=== PATIENT | male | born 1960 | race Caucasian/White ===

== ENCOUNTER 2019-12-01 16:19 | Outpatient (CLI) | payer OTHER, SELFPAY ==
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
== END 2019-12-01 16:20 | disposition home or self-care (01) ==
PROVIDERS: PCP Internal Medicine; Visit Provider Internal Medicine
DX: M25.512 Pain in left shoulder (principal)
CPT/HCPCS: 73030

== ENCOUNTER 2019-12-08 10:46 | Outpatient (CLI) | payer OTHER, SELFPAY ==
--- NOTE | ~2019-12-08 | XR_ITS ---
EXAMINATION: XR chest 2V DATE: 12/08/2019 11:12 INDICATION: Possible foreign body ingestion TECHNIQUE: PA and lateral views of the chest are obtained. COMPARISON: 01/05/2018 FINDINGS: The lungs are free of acute opacities. There is no pleural effusion or pneumothorax. The ca rdiomediastinal silhouette is normal. There is mild thoracic spondylosis. No radiopaque foreign body is identified. IMPRESSION: 1. No acute cardiopulmonary abnormality. No radiopaque foreign body identified. Reviewed, dictated and finalized at location A.
== END 2019-12-08 10:47 | disposition home or self-care (01) ==
PROVIDERS: PCP Internal Medicine
DX: T18.9XXA Foreign body of alimentary tract, part unspecified, initial encounter (principal)
CPT/HCPCS: 71046

== ENCOUNTER 2019-12-17 08:17 | Outpatient (CLI) | payer OTHER, SELFPAY ==
--- NOTE | ~2019-12-17 | MR_ITS ---
EXAMINATION: MR shoulder LT wo con DATE: 12/17/2019 09:15 INDICATION: Left shoulder pain TECHNIQUE: Magnetic resonance imaging (MRI) of the left shoulder was performed without intravenous co ntrast. Sequences included axial PD-weighted FS FSE, coronal oblique PD-weighted FS FSE, coronal obli que T2-weighted FS FSE, sagittal PD-weighted FS FSE, and sagittal T1-weighted SE. COMPARISON: Left shoulder radiographs dated 12/01/2019 FINDINGS: Coracoacromial arch: The acromion undersurface is curved in morphology (type II). The coracoacromial ligament is normal. M oderate acromioclavicular osteoarthritis. Rotator cuff: Moderate supraspinatus and infraspinatus tendinopathy. There is attenuation of the distal supraspinat us tendon with poorly defined small partial-thickness articular sided tear. In addition there is a sm all full-thickness split tear measuring approximately 1 mm in AP with and extending for approximately 1-1.5 cm medial to lateral. Mild subscapularis tendinopathy without discrete tear. The teres minor t endon is normal. Normal rotator cuff muscle bulk and signal. Biceps tendon, glenoid labrum and glenohumeral cartilage: Long head of the biceps tendon is normal. Degenerative tearing of the anteroinferior the inferior gle noid labrum. Mild partial thickness cartilage loss with smooth chondral surface at the cephalad third of the glenoid. Fluid: Physiologic amount of fluid in the glenohumeral joint and biceps tendon sheath. No loose osteochondra l bodies. Small amount of fluid in the subacromial/subdeltoid bursa consistent with likely representi ng fluid from the glenohumeral joint space extending through the full-thickness supraspinatus tendon split tear. Bones: There are a a few small scattered bone islands at the glenoid and base of the coracoid process. Marro w signal is normal with no fracture or pathologic marrow replacing process. IMPRESSION: 1. Moderate supraspinatus and infraspinatus tendinopathy with poorly demarcated partial-thickness art icular sided tear at the distal supraspinatus tendon with superimposed more well-defined small full-t hickness longitudinal split tear. 2. Mild glenohumeral osteoarthritis with degenerative tearing of the anteroinferior and inferior hector oid labrum. 3. Moderate acromioclavicular osteoarthritis. 4. Small amount of fluid in the subacromial bursa which could be due to bursitis or more likely fluid from the glenohumeral joint space extending through the full-thickness supraspinatus tendon tear. Reviewed, dictated and finalized at location A. IMPRESSION: 1. Moderate supraspinatus and infraspinatus tendinopathy with poorly demarcated partial-thickness articular sided tear at the distal supraspinatus tendon with superimposed more well-defined small full-thickness longitudinal split tear. 2. Mild glenohumeral osteoarthritis with degenerative tearing of the anteroinfe rior and inferior glenoid labrum. 3. Moderate acromioclavicular osteoarthritis. 4. Small amount of fluid in the subacromial bursa which could be due to bursiti s or more likely fluid from the glenohumeral joint space extending through the full-thickness supraspinatus tendon tear.
== END 2019-12-17 08:18 | disposition home or self-care (01) ==
LOC: CHSIMG 08:19
PROVIDERS: PCP Internal Medicine; Visit Provider Internal Medicine
DX: M25.512 Pain in left shoulder (principal)
CPT/HCPCS: 73221

== ENCOUNTER 2020-01-05 08:00 | Outpatient (RCR) | payer OTHER, SELFPAY ==
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
--- NOTE | 2019-12-30 13:15 | PCPTNOTE ---
12/30/19-pt cancelled apt, no reason stated.-HM
== END 2020-02-06 09:28 | disposition home or self-care (01) ==
LOC: CHSPT 08:00
PROVIDERS: PCP Internal Medicine; Visit Provider Internal Medicine
DX: M25.512 Pain in left shoulder (principal); M19.012 Primary osteoarthritis, left shoulder; M75.112 Incomplete rotator cuff tear or rupture of left shoulder, not specified as traumatic
CPT/HCPCS: 97014; 97110; 97161; G0283

== ENCOUNTER 2021-01-30 10:14 | Outpatient (CLI) | payer OTHER, SELFPAY ==
--- NOTE | ~2021-01-30 | XR_ITS ---
EXAMINATION: XR chest 2V 01/30/2021 11:12 INDICATION: Dyspnea. Sinus infection. Cough. PROCEDURE: 2 view chest COMPARISON: Comparison to multiple prior studies sequentially, with oldest reviewed study dated 01/10. FINDINGS: The lungs are clear. The cardiomediastinal silhouette is within normal limits. There are no pleural effusions. There is no pneumothorax suspected. IMPRESSION: 1: NO ACUTE CARDIOPULMONARY DISEASE. Reviewed, dictated and finalized at location A.
[2021-01-30 10:46] LABS: Basophils Absolute Auto 0.04 K/mm3 (0.00-0.10); Basophils Percent Auto 0.7 % (0.0-1.0); Eosinophils Absolute Auto 0.42 K/mm3 (0.02-0.50); Eosinophils Percent Auto 7.8 % (1.0-6.0); Hematocrit 41.4 % (40.0-54.0); Hemoglobin 13.4 g/dL (14.0-18.0); Immature Granulocyte Absolute 0.01 K/mm3 (0.00-0.00); Immature Granulocyte Percent A 0.2 % (0.0-0.0); Lymphocytes Absolute Auto 1.88 K/mm3 (1.10-4.50); Lymphocytes Percent Auto 34.8 % (18.0-42.0); Mean Corpuscular HGB Conc 32.4 g/dL (32.0-36.0); Mean Corpuscular Hemoglobin 26.5 pg (27.0-31.0); Mean Corpuscular Volume 81.8 fL (78.0-102.0); Monocytes Absolute Auto 0.53 K/mm3 (0.10-0.90); Monocytes Percent Auto 9.8 % (2.0-11.0); Neutrophils Absolute Auto 2.5 K/mm3 (1.7-7.2); Neutrophils Percent Auto 46.7 % (50.0-70.0); Platelet Count Result 211 K/mm3 (150-420); Red Blood Count 5.06 M/mm3 (4.70-6.10); White Blood Count 5.4 K/mm3 (4.8-10.8)
[2021-01-30 11:09] LABS: Alanine Aminotransferase 31 U/L (16-63); Albumin Level 3.7 g/dL (3.4-5.0); Alkaline Phosphatase 57 U/L (46-116); Anion Gap 8 mmol/L (8-16); Aspartate Amino Transferase 23 U/L (15-37); Bilirubin,Total 0.8 mg/dL (0.00-1.00); Blood Urea Nitrogen 22 mg/dL (7-18); Calcium 8.9 mg/dL (8.5-10.1); Carbon Dioxide 28 mmol/L (21-32); Chloride 103 mmol/L (98-108); Estimated Glomerular Filt Rate 55; Glucose 102 mg/dL (70-99); Osmolality Calculated 291 mOsm/kg (285-295); Potassium 4.1 mmol/L (3.5-5.1); Sodium 139 mmol/L (136-145); Total Protein 6.5 g/dL (6.4-8.2)
[2021-01-30 11:16] LABS: Influenza Control Valid (Valid)
[2021-01-30 11:37] LABS: SARS-CoV-2 RNA PCR Negative (Negative)
== END 2021-01-30 10:15 | disposition home or self-care (01) ==
PROVIDERS: PCP Internal Medicine; Visit Provider Internal Medicine
DX: Z20.822 Contact with and (suspected) exposure to COVID-19 (principal); R06.00 Dyspnea, unspecified; J45.909 Unspecified asthma, uncomplicated
CPT/HCPCS: 71046; 80053; 85025; 87804; C9803; U0003; U0005

== ENCOUNTER 2021-08-07 11:15 | Outpatient (CLI) | payer OTHER, SELFPAY ==
[2021-08-07 12:02] LABS: Influenza A QL RT-PCR Negative (Negative); Influenza B QL RT-PCR Negative (Negative); SARS-CoV-2 RNA PCR Negative (Negative)
== END 2021-08-07 11:16 | disposition home or self-care (01) ==
LOC: CHSLAB 11:16
PROVIDERS: PCP Internal Medicine; Visit Provider Internal Medicine
DX: J06.9 Acute upper respiratory infection, unspecified (principal); Z20.822 Contact with and (suspected) exposure to COVID-19
CPT/HCPCS: 87502; C9803; U0003; U0005

== ENCOUNTER 2022-09-24 13:57 | Outpatient (CLI) | payer OTHER, SELFPAY ==
--- NOTE | ~2022-09-24 | XR_ITS ---
Clinical Indication: Dyspnea PA and lateral views of the chest: Comparison: 01/30/2021 Findings: The lungs are clear, without evidence of focal consolidation or pleural effusion. Cardiome diastinal silhouette is within normal limits. Bones and soft tissues are unremarkable. Impression: Normal chest. Reviewed, dictated and finalized at location . 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
[2022-09-24 14:40] LABS: Basophils Absolute Auto 0.03 K/mm3 (0.00-0.10); Basophils Percent Auto 0.5 % (0.0-1.0); Eosinophils Absolute Auto 0.23 K/mm3 (0.02-0.50); Eosinophils Percent Auto 3.9 % (1.0-6.0); Hemoglobin 14.6 g/dL (14.0-18.0); Immature Granulocyte Absolute 0.01 K/mm3 (0.00-0.00); Immature Granulocyte Percent A 0.2 % (0.0-0.0); Lymphocytes Absolute Auto 1.69 K/mm3 (1.10-4.50); Mean Corpuscular HGB Conc 32.4 g/dL (32.0-36.0); Mean Corpuscular Hemoglobin 28.5 pg (27.0-31.0); Mean Corpuscular Volume 87.9 fL (78.0-102.0); Mean Platelet Volume 10.4 fl (8.7-11.0); Monocytes Absolute Auto 0.63 K/mm3 (0.10-0.90); Monocytes Percent Auto 10.8 % (2.0-11.0); Neutrophils Absolute Auto 3.2 K/mm3 (1.7-7.2); Neutrophils Percent Auto 55.6 % (50.0-70.0); Platelet Count Result 228 K/mm3 (150-420); Red Blood Count 5.12 M/mm3 (4.70-6.10); Red Cell Distribution Width 14.6 % (11.6-14.4); White Blood Count 5.8 K/mm3 (4.8-10.8)
[2022-09-24 15:12] LABS: Alanine Aminotransferase 55 U/L (16-63); Albumin Level 3.9 g/dL (3.4-5.0); Alkaline Phosphatase 60 U/L (46-116); Anion Gap 5 mmol/L (8-16); Aspartate Amino Transferase 26 U/L (15-37); Bilirubin,Total 0.5 mg/dL (0.00-1.00); Blood Urea Nitrogen 21 mg/dL (7-18); Calcium 9.2 mg/dL (8.5-10.1); Carbon Dioxide 32 mmol/L (21-32); Chloride 104 mmol/L (98-108); Estimated Glomerular Filt Rate 53; Glucose 80 mg/dL (70-99); NT Pro B Type Natriuretic Pept 30 pg/mL (0-125); Osmolality Calculated 294 mOsm/kg (285-295); Potassium 4.4 mmol/L (3.5-5.1); Sodium 141 mmol/L (136-145); Total Protein 6.7 g/dL (6.4-8.2)
[2022-09-24 15:14] LABS: CRP < 0.5 mg/dL (0.0-0.9)
[2022-09-24 15:44] LABS: Erythrocyte Sedimentation Rate 7 mm/hr (0-20)
== END 2022-09-24 13:58 | disposition home or self-care (01) ==
LOC: CHSLAB 14:01
PROVIDERS: PCP Internal Medicine; Visit Provider Internal Medicine
DX: R06.00 Dyspnea, unspecified (principal); J45.909 Unspecified asthma, uncomplicated
CPT/HCPCS: 36415; 71046; 80053; 83880; 85025; 85652; 86140

== ENCOUNTER 2023-10-06 13:20 | Outpatient (CLI) | payer OTHER, SELFPAY ==
--- NOTE | ~2023-10-06 | XR_ITS ---
EXAMINATION: XR chest 2V DATE: 10/06/2023 13:40 INDICATION: Cough, upper respiratory infection TECHNIQUE: Frontal and lateral views of the chest are obtained COMPARISON: 09/24/2022 FINDINGS: There are minimal airspace opacities of the lingula. No pleural effusion or pneumothorax. T he cardiomediastinal silhouette is normal. There is mild thoracic spondylosis. IMPRESSION: 1. Lingular airspace opacities, consistent with atelectasis versus pneumonia. Reviewed, dictated and finalized at location L. N UP PERSON
[2023-10-06 13:38] LABS: Basophils Absolute Auto 0.04 K/mm3 (0.00-0.10); Basophils Percent Auto 0.6 % (0.0-1.0); Eosinophils Absolute Auto 0.21 K/mm3 (0.02-0.50); Eosinophils Percent Auto 3.3 % (1.0-6.0); Hematocrit 42.7 % (40.0-54.0); Hemoglobin 13.7 g/dL (14.0-18.0); Immature Granulocyte Absolute 0.02 K/mm3 (0.00-0.00); Immature Granulocyte Percent A 0.3 % (0.0-0.0); Lymphocytes Absolute Auto 1.55 K/mm3 (1.10-4.50); Lymphocytes Percent Auto 24.1 % (18.0-42.0); Mean Corpuscular HGB Conc 32.1 g/dL (32.0-36.0); Mean Corpuscular Hemoglobin 26.2 pg (27.0-31.0); Mean Corpuscular Volume 81.8 fL (78.0-102.0); Mean Platelet Volume 10.2 fl (8.7-11.0); Monocytes Absolute Auto 0.57 K/mm3 (0.10-0.90); Monocytes Percent Auto 8.9 % (2.0-11.0); Neutrophils Absolute Auto 4.1 K/mm3 (1.7-7.2); Neutrophils Percent Auto 62.8 % (50.0-70.0); Platelet Count Result 231 K/mm3 (150-420); Red Blood Count 5.22 M/mm3 (4.70-6.10); Red Cell Distribution Width 15.9 % (11.6-14.4); White Blood Count 6.4 K/mm3 (4.8-10.8)
[2023-10-06 13:54] LABS: Alanine Aminotransferase 37 U/L (16-63); Albumin Level 3.8 g/dL (3.4-5.0); Alkaline Phosphatase 63 U/L (46-116); Anion Gap 9 mmol/L (8-16); Aspartate Amino Transferase 24 U/L (15-37); Bilirubin,Total 0.6 mg/dL (0.00-1.00); Blood Urea Nitrogen 20 mg/dL (7-18); Calcium 9.2 mg/dL (8.5-10.1); Carbon Dioxide 28 mmol/L (21-32); Chloride 104 mmol/L (98-108); Estimated Glomerular Filt Rate 52; Glucose 95 mg/dL (70-99); Osmolality Calculated 294 mOsm/kg (285-295); Potassium 4.4 mmol/L (3.5-5.1); Sodium 141 mmol/L (136-145); Total Protein 7.2 g/dL (6.4-8.2)
[2023-10-06 14:03] LABS: Strep Group A RT-PCR NOT DETECTED (Negative)
[2023-10-06 14:13] LABS: SARS-CoV-2 RNA PCR Negative (Negative)
[2023-10-06 14:14] LABS: Influenza A QL RT-PCR Negative (Negative); Influenza B QL RT-PCR Negative (Negative); RSV RNA, RT-PCR Negative (Negative)
== END 2023-10-06 13:21 | disposition home or self-care (01) ==
LOC: CHSLAB 13:23
PROVIDERS: PCP Internal Medicine; Visit Provider Internal Medicine
DX: J06.9 Acute upper respiratory infection, unspecified (principal); R05.9 Cough, unspecified; R91.8 Other nonspecific abnormal finding of lung field
CPT/HCPCS: 36415; 71046; 80053; 85025; 87637; 87651

== ENCOUNTER 2023-10-20 16:04 | Outpatient (CLI) | payer OTHER, SELFPAY ==
--- NOTE | ~2023-10-20 | XR_ITS ---
Clinical Indication: Pneumonia PA and lateral views of the chest: Comparison: 10/06/2023 Findings: The lungs are clear, without evidence of focal consolidation or pleural effusion. Cardiome diastinal silhouette is within normal limits. Bones and soft tissues are unremarkable. Impression: Normal chest. Reviewed, dictated and finalized at [facility]. 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
== END 2023-10-20 16:05 | disposition home or self-care (01) ==
LOC: CHSIMG 16:06
PROVIDERS: PCP Internal Medicine; Visit Provider Internal Medicine
DX: J18.9 Pneumonia, unspecified organism (principal)
CPT/HCPCS: 71046

== ENCOUNTER 2024-03-14 11:38 | Outpatient (CLI) | payer OTHER, SELFPAY ==
--- NOTE | ~2024-03-14 | US_ITS ---
EXAMINATION: US soft tissue LE LT DATE: 03/14/2024 12:13 INDICATION: Left calf swelling and pain. TECHNIQUE: Multiple grayscale and Doppler ultrasound images of the left lower limb were obtained. COMPARISON: None FINDINGS: There is no abnormal mass or hematoma in the left calf in the patient's area of concern. IMPRESSION: 1. No abnormal mass or hematoma in the left calf in the patient's area of concern. Reviewed, dictated and finalized at location A. IMPRESSION: 1. No abnormal mass or hematoma in the left calf in the patient's area of dxeter rn.
--- NOTE | ~2024-03-14 | US_ITS ---
LEFT LOWER EXTREMITY VENOUS ULTRASOUND Ordering provider: Symone Hutton MD History: . LEFT CALF SWELLING/PAIN, R/O DVT . Comparison: None. FINDINGS: --COMMON FEMORAL: Patent and free of thrombus. Normal compressibility, phasic flow and augmentation. --PROXIMAL SUPERFICIAL FEMORAL: Patent and free of thrombus. Normal compressibility, phasic flow and augmentation. --DISTAL SUPERFICIAL FEMORAL: Patent and free of thrombus. Normal compressibility, phasic flow and au gmentation. --POPLITEAL: Patent and free of thrombus. Normal compressibility, phasic flow and augmentation. --POSTERIOR TIBIAL: Patent and free of thrombus. Normal compressibility, phasic flow and augmentation . IMPRESSION: Negative left lower extremity venous US. No deep vein thrombosis. Reviewed, dictated and finalized at location A.
== END 2024-03-14 11:39 | disposition home or self-care (01) ==
LOC: CHSIMG 11:41
PROVIDERS: PCP Internal Medicine; Visit Provider Internal Medicine
DX: M79.89 Other specified soft tissue disorders (principal)
CPT/HCPCS: 76882; 93971

== ENCOUNTER 2024-08-29 13:34 | Outpatient (CLI) | payer OTHER, SELFPAY ==
--- NOTE | ~2024-08-29 | XR_ITS ---
XR chest 2V Ordering provider: Symone Hutton MD History: 63 years Male with . chest pain/dyspnea for 1 week hx asthma . Comparison: October 20, 2023 FINDINGS: MEDIASTINUM: The cardiac silhouette is not enlarged. Slightly prominent wandy. LUNGS: No infiltrates, effusions or pneumothorax. OTHER: No free air under the diaphragm. Degenerative changes of the spine. IMPRESSION: No acute cardiopulmonary pathology. Reviewed, dictated and finalized at location A. 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
[2024-08-29 13:52] LABS: Basophils Absolute Auto 0.04 K/mm3 (0.00-0.10); Basophils Percent Auto 0.7 % (0.0-1.0); Eosinophils Absolute Auto 0.26 K/mm3 (0.02-0.50); Eosinophils Percent Auto 4.2 % (1.0-6.0); Hematocrit 44.7 % (40.0-54.0); Hemoglobin 14.1 g/dL (14.0-18.0); Immature Granulocyte Absolute 0.02 K/mm3 (0.00-0.00); Immature Granulocyte Percent A 0.3 % (0.0-0.0); Lymphocytes Absolute Auto 1.47 K/mm3 (1.10-4.50); Mean Corpuscular HGB Conc 31.5 g/dL (32-36); Mean Corpuscular Hemoglobin 26.4 pg (27.0-31.0); Mean Corpuscular Volume 83.6 fL (78.0-102.0); Mean Platelet Volume 9.7 fl (8.7-11.0); Monocytes Absolute Auto 0.73 K/mm3 (0.10-0.90); Monocytes Percent Auto 11.9 % (2.0-11.0); Neutrophils Percent Auto 58.9 % (50.0-70.0); Platelet Count Result 265 K/mm3 (150-420); Red Blood Count 5.35 M/mm3 (4.70-6.10); Red Cell Distribution Width 15.2 % (11.6-14.4); White Blood Count 6.1 K/mm3 (4.8-10.8)
[2024-08-29 13:56] LABS: Add Urine Microscopic? NO; Appearance Urine Clear (Clear); Bilirubin Urine Negative (Negative); Blood Urine Negative (Negative); Color Urine Light Yellow (Yellow); Glucose Urine UA Negative (Negative); Ketones Urine Negative (Negative); Leukocyte Esterase Ur Negative (Negative); Nitrate Urine Negative (Negative); Protein Urine Negative (Negative); Specific Grav Ur 1.015 (1.010-1.020); Urobilinogen Urine 0.2 mg/dL (0.2-1.0)
[2024-08-29 14:11] LABS: D Dimer 0.29 mg/L (0.19-0.50)
[2024-08-29 14:20] LABS: Alanine Aminotransferase 29 U/L (16-63); Alkaline Phosphatase 66 U/L (46-116); Anion Gap 7 mmol/L (4-12); Aspartate Amino Transferase 17 U/L (15-37); Bilirubin,Total 0.6 mg/dL (0.00-1.00); Blood Urea Nitrogen 19 mg/dL (7-18); Calcium 9.6 mg/dL (8.5-10.1); Carbon Dioxide 31 mmol/L (21-32); Chloride 103 mmol/L (98-108); Creatine Kinase 174 U/L (39-308); Estimated Glomerular Filt Rate 54; Glucose 79 mg/dL (70-99); NT Pro B Type Natriuretic Pept 26 pg/mL (0-125); Osmolality Calculated 293 mOsm/kg (285-295); Potassium 4.6 mmol/L (3.5-5.1); Sodium 141 mmol/L (136-145); Total Protein 7.4 g/dL (6.4-8.2); Troponin I 6.8 ng/L (0.00-60.4)
[2024-08-29 14:21] LABS: CRP < 0.5 mg/dL (0.0-0.9)
[2024-08-29 14:35] LABS: SARS-CoV-2 RNA PCR Negative (Negative)
[2024-08-29 14:36] LABS: Influenza A QL RT-PCR Negative (Negative); Influenza B QL RT-PCR Negative (Negative); RSV RNA, RT-PCR Negative (Negative)
[2024-08-29 14:59] LABS: Erythrocyte Sedimentation Rate 10 mm/hr (0-20)
== END 2024-08-29 13:35 | disposition home or self-care (01) ==
LOC: CHSLAB 13:36
PROVIDERS: PCP Internal Medicine; Visit Provider Internal Medicine
DX: R06.00 Dyspnea, unspecified (principal); R07.9 Chest pain, unspecified
CPT/HCPCS: 36415; 71046; 80053; 81003; 82550; 82553; 83880; 84484; 85025; 85380; 85652; 86140; 87637

== ENCOUNTER 2024-09-27 09:33 | Outpatient (CLI) | payer MEDICARE, SELFPAY ==
--- NOTE | ~2024-09-27 | XR_ITS ---
EXAMINATION: XR chest 2V DATE: 09/27/2024 10:00 INDICATION: Asthma presenting with upper respiratory tract infection TECHNIQUE: PA and lateral views of the chest were obtained. COMPARISON: Chest radiograph dated 08/29/2024 FINDINGS: The lungs remain clear with no focal airspace opacities, pulmonary edema, pleural effusion or pneumot horax. The cardiomediastinal silhouette is normal. Mild thoracic spondylosis with chronic mild anteri or wedging of a midthoracic vertebral body. IMPRESSION: 1. No acute cardiopulmonary disease. Reviewed, dictated and finalized at location A. LE SCHOOL DIRECTOR
[2024-09-27 09:55] LABS: Hematocrit 45.8 % (37.0-46.0); Mean Corpuscular HGB Conc 30.6 g/dL (32-36); Mean Corpuscular Hemoglobin 25.9 pg (27.0-31.0); Mean Corpuscular Volume 84.7 fL (78.0-102.0); Mean Platelet Volume 9.7 fl (8.7-11.0); Platelet Count Result 288 K/mm3 (150-420); Red Blood Count 5.41 M/mm3 (4.70-6.10); Red Cell Distribution Width 15.4 % (11.6-14.4); White Blood Count 5.3 K/mm3 (4.8-10.8)
[2024-09-27 10:18] LABS: Anion Gap 7 mmol/L (4-12); Blood Urea Nitrogen 20 mg/dL (7-18); Calcium 9.1 mg/dL (8.5-10.1); Carbon Dioxide 29 mmol/L (21-32); Chloride 106 mmol/L (98-108); Estimated Glomerular Filt Rate 48; Glucose 100 mg/dL (70-99); Osmolality Calculated 296 mOsm/kg (285-295); Sodium 142 mmol/L (136-145)
--- OUTSIDE RECORDS SUMMARY | 2024-09-27 10:28 | XMS_ITS | Clinical Summary ---
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 Pulse 56 06/25/2015 9:35 AM EXCELLENCE CONSULTANT Temperature - - Respiratory Rate 16 06/25/2015 9:35 AM EXCELLENCE CONSULTANT Oxygen Saturation - - Inhaled Oxygen Concentration - - Weight 92.7 kg (204 lb 6.4 oz) 06/25/2015 9:35 A M EXCELLENCE CONSULTANT Height 181.6 cm (5' 11.5 ) 06/25/2015 9:35 AM CS T Body Mass Index 28.11 06/25/2015 9:35 AM EXCELLENCE CONSULTANT Plan of Treatment Health Maintenance Due Date Last Done Comments Colorectal Cancer Screening Colonoscopy (10 Years) 1959 Annual Physical 1962 Hepatitis C 1977 DTaP, Tdap and Td Vaccines ( 1 - Tdap) 1978 Zoster Vaccines (1 of 2) 2009 COVID-19 Vaccine ( - 2023-2 5 season) 2024 Influenza Adult (#1) 2024 RSV Immunization or 60+ Years (1 - 1-dose 75+ series) 2034 Meningococcal B Vaccine Aged Out No l onger eligible based on patient's age to complete this topic Meningococcal Vaccine Aged Out No jose driss eligible based on patient's age to complete this topic Pneumococcal Vaccine: Pediat rics (0 to 5 Years) and At-Risk Patients (6 to 64 Years) Aged Out No longer eligible b ased on patient's age to complete this topic RSV Immunizations Under 20 Months Aged Out No longer eligible based on patient's age to complete this topic
--- OUTSIDE RECORDS SUMMARY | 2024-09-27 10:28 | XMS_ITS | Patient Health Summary ---
Author Organization [facility] Address [address] [place] [address] Care Team Providers Care House Cleaner Name Role Phone Symone Hutton MD Primary Care Provider [phone] [facility],non-owned Affiliates and Associated Physician Practices is amultiple site organization consisting of ambulatory clinics and hospital sitesin [place], [place], [place] and [place]. This disclosure is being madepursuant to the Care Everywhere program and may not contain all information available regarding this patient. Last updated 18.[facility] Allergies No known active allergies Medications * Be aware that medications may not be up to date on this document. Alwaysverify current medications with the patient. * losartan - hydroCHLOROthiazide (HYZAAR) 50-12.5 MG tablet(Started 08/27/2016) Take 0.5 (one-half) tablet by mouth once daily * budesonide (PULMICORT) 0.5 MG/2ML nebulizer suspension(Started 01/16/2022) Mix contents of 1 vial in 240ml saline. Irrigate half in each nostril twice daily. Pt to mix own saline bottle 3 refills by 01/16/2023 * amLODIPine (Norvasc) 5 MG tablet(Started 12/11/2022) Take 2 (two) tablets by mouth once daily * amLODIPine (Norvasc) 10 MG tablet(Started 04/24/2023) Take 1 (one) tablet by mouth once daily * famotidine (Pepcid) 20 MG tablet(Started 05/19/2024) Take 1 (one) tablet by mouth 2 times daily 3 refills by 05/19/2025 * budesonide-formoterol (Breyna) 160-4.5 MCG/ACT inhaler(Started 05/19/2024) Inhale 2 (two) puffs by mouth 2 times daily 3 refills by 05/19/2025 * montelukast (Singulair) 10 MG tablet(Started 05/19/2024) Take 1 (one) tablet by mouth once daily 3 refills by 05/19/2025 * fluticasone propionate (Flonase) 50 MCG/ACT nasal spray(Started 05/19/2024) [place] 1 (one) spray into each nostril 2 times daily 11 refills by 05/19/2025 * albuterol HFA (Proventil; Ventolin; Proair) 108 (90 Base) MCG/ACT inhaler (Started 05/19/2024) Inhale 2 (two) puffs by mouth every 4 hours as needed for Shortness of Breath, Wheezing or Cough 11 refills by 05/19/2025 * azelastine (Astelin) 0.1 % nasal spray(Started 05/19/2024) [place] 2 (two) sprays into each nostril 2 times daily 3 refills by 05/19/2025 Active Problems Problem Noted Date Diagnosed Date Moderate persistent asthma without complication 02/12/2023 Vocal cord dysfunction 05/02/2018 Essential hypertension 04/28/2018 Severe persistent asthma without complication GERD (gastroesophageal reflux disease) 3 Non-allergic rhinitis 08/27/2012 Resolved Problems Problem Noted Date Diagnosed Date Resolved Date Acute upper respiratory infection 07/23/2017 11/30/2017 Headache 05/31/2015 04/21/2018 Chronic rhinitis 08/27/2012 04/21/2018 Chronic maxillary sinusitis 12/25/2010 04/21/2018 Immunizations * INFLUENZA VACCINE(Given 06/23/2022) * INFLUENZA VACCINE, QUADR. (AFLURIA, FLUZONE QUADRIVALENT; 6MO+) (IIV4)(Given 06/18/2017, 08/06/2016, 06/04/2015) * INFLUENZA VACCINE, QUADR. (FLUZONE; FLULAVAL; FLUARIX; AFLURIA QUADRIVALENT; 6MO+), 0.5 ML (IIV4)(Given 04/30/2020, 05/29/2019, 04/28/2018) * PNEUMOCOCCAL PPV VACCINE(Given 2018, 05/25/2015, 12/25/2010) * Pneumococcal Pcv13 Conj(Given 02/20/2016) * TDAP, HISTORIC VACCINE(Given 06/18/2017, 06/13/2008) * Zoster Hzv Vacc Recombinant Inj Im(Given 06/25/2020, 03/06/2020) Social History Tobacco Use Types Packs/Day Years Used Date Smoking Tobacco: Never Smokeless Tobacco: Never Tobacco Cessation:Counseling Given: Not Answered Alcohol Use Standard Drinks/Week Comments Yes 4 (1 standard drink = 0.6 oz pur e alcohol) PHQ-2 Answer Date Recorded PHQ2 TOTAL SCORE 0 02/12/2023 Sex and Gender Information Value Date Recorded Sex Assigned at Not on file Gender Identity Not on file Sexual Orientation Not on file Last Filed Vital Signs Vital Sign Reading Time Taken Comments Blood Pressure 160/89 05/19/2024 3:47 PM CDT Pulse 74 05/19/2024 3:47 PM CDT Temperature 36.4 C (97.5 F) 05/19/2024 3:47 PM CDT Respiratory Rate 18 05/19/2024 3:47 PM CDT Oxygen Saturation 95% 05/19/2024 3:47 PM CDT Inhaled Oxygen Concentration - - Weight 95.7 kg (211 lb) 05/19/2024 3:47 PM CDT Height 182.9 cm (6') 05/19/2024 3:47 PM CDT Body Mass Index 28.62 05/19/2024 3:47 PM CDT Procedures * PFT-LAB(Performed 07/19/2024) Performed for Severe persistent asthma without complication (HCC) * ME NASAL ENDOSCOPY,DX(Performed 03/06/2022) Performed for Chronic ethmoidal sinusitis * CT SINUS WO CONTRAST(Performed 01/16/2022) Performed for Non-allergic rhinitis * SPIROMETRY - POCT (AMB) [facility](Performed 04/28/2018) Performed for Severe persistent asthma without complication (HCC) * XR CHEST 2VW(Performed 03/19/2017) * PATHOLOGY/GENETICS HISTORICAL-ONBASE(Performed 08/19/2007) Results * Complete PFT [facility] PFT Lab (07/19/2024 10:13 AM CONSTRUCTION TRADES TEACHER) Impressions Virgilio Mojica MD - 07/19/2024 10:13 AM CONSTRUCTION TRADES TEACHER [facility] DEPARTMENT OF PULMONARY, CRITICAL CARE, AND SLEEP MEDICINE PULMONARY FUNCTION TEST Please see technologist's comments mentioned in the report. INTERPRETATION: SPIROMETRY: FVC: normal FEV1: normal FEV1/FVC ratio is normal BRONCHODILATOR RESPONSE: There is no significant response to bronchodilator therapy however does not preclude from bronchodilator therapy if clinically indicated otherwise FLOW-VOLUME LOOPS: Normal flow-volume loops LUNG VOLUMES: Lung volumes by body plethysmography show normal total lung volume and normal residual volume DLCO: Unadjusted for Hb and COHb is: normal (-1.65 to 1.645) IMPRESSION: 1. Normal pulmonary function test. 2. No significant bronchodilator response, however this does not preclude the use of bronchodilators 3. There is no previous study available for comparison. Simon Fagan DO Pulmonary & Critical Care Fellow [facility] Pager: [phone] 7:56 PM I have reviewed the above study and agree with the interpretation as listed above. Virgilio Mojica MD Dumpster Driver of Pulmonary & Critical Care Medicine [facility] Pager [phone] Narrative Virgilio Mojica MD - 07/19/2024 10:13 AM CONSTRUCTION TRADES TEACHER Simon Fagan DO 07/19/2024 7:56 PM Timmy Alejandra MD RESPIRATORY THERAPY ORDERABLES * ME NASAL ENDOSCOPY,DX (03/06/2022 11:35 AM CDT) Narrative Gavi Duggan MD - 03/06/2022 11:35 AM CDT Gavi Duggan MD 03/06/2022 4:17 PM Procedure Note Anesthesia: Lidocaine 2% and Champ-Synephrine 1/2% Endoscopy Type: Rigid Nasal Endoscopy Procedure Details: Informed consent was obtained. The patient was placed in the sitting position. After topical anesthesia and decongestion, the 4 mm endoscope was passed. The nasal cavities, nasopharynx, were all examined. The findings were recorded. The following findings were noted: Right side patent, with some polypoid tissue in middle meatus, mild septal deviation, pink mucosa, patent Eustachian tube, adenoid pad with evidence of prior adenoidectomy. Left side narrower, mild polyposis, open maxillary sinus, mild edema, pink mucosa. The patient tolerated procedure well. Complications: None For all procedures, attending was present and performed the denton portions of the procedure. Jaziel Rodriguez MD PROCEDURE/MINOR SURG ICAL ORDERABLES * CT SINUS WO CONTRAST (01/16/2022 9:08 AM CDT) Anatomical Region Laterality Modality Head Computed Tomogra phy 01/16/2022 10:2 6 AM CDT Impressions 01/16/2022 12:45 PM CDT IMPRESSION: 1.Postsurgical changes of prior sinonasal surgery. 2.Inflammatory changes in multiple paranasal sinuses as above with underlying chronic sinusitis. Dictated by Josh Gore MD (Bridal Sales Consultant) I, Dr. MALENA NOONAN M.D. have personally reviewed and interpreted this examination/study. This report was electronically signed by MALENA NOONAN M.D. on 01/16/2022 12:45 PM . Narrative 01/16/2022 12:45 PM CDT EXAMINATION: Computed tomography (CT) of the paranasal sinuses without contrast HISTORY: J31.0: Non-allergic rhinitis TECHNIQUE: CT of the paranasal sinuses was performed without contrast according to standard protocol. Automated dose reduction techniques were employed. COMPARISON: No prior study is available for comparison at the time of this dictation. FINDINGS: Frontal sinuses: Hypoplastic right frontal sinus with near complete opacification due to frothy secretions. Near complete opacification of right frontal sinus outflow tract. Aerated well-pneumatized left frontal sinus with minimal mucosal thickening in the inferior sinus and outflow tract. Ethmoid sinuses: Status post partial ethmoidectomies bilaterally. Opacification of several anterior and posterior ethmoid air cells bilaterally Sphenoid sinuses: Very small and completely opacified right sphenoid sinus. Dominant left sphenoid sinus with circumferential mild mucosal thickening and complete opacification of the ostium and infundibulum. Possibly prior sphenoidotomy. Aeration of the sphenoid sinus extends to the level of dorsum sella. Maxillary sinuses: . Status post bilateral antrostomies. Moderate polypoid mucosal thickening. Patent ostiomeatal units. Nasal cavity: Bilateral uncinectomies and left sided partial middle turbinectomy. Nearly midline nasal septum. No septal spur. Fovea ethmoidalis at nearly the same level bilaterally. Intact cribriform plate. Tympanomastoid cavities: Well pneumatized and completely aerated Orbits: No significant finding. Brain: No significant finding. Soft tissues: No significant finding. 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 Procedure Note Malena Noonan MD - 01/16/2022 EXAMINATION: Computed tomography (CT) of the paranasal sinuses without contrast HISTORY: J31.0: Non-allergic rhinitis TECHNIQUE: CT of the paranasal sinuses was performed without contrast according to standard protocol. Automated dose reduction techniques were employed. COMPARISON: No prior study is available for comparison at the time ofthis dictation. FINDINGS: Frontal sinuses: Hypoplastic right frontal sinus with near complete opacification due to frothy secretions. Near complete opacification of right frontal sinus outflow tract. Aerated well-pneumatized left frontal sinus with minimal mucosal thickening in the inferior sinus and outflow tract. Ethmoid sinuses: Status post partial ethmoidectomies bilaterally. Opacification of several anterior and posterior ethmoid air cells bilaterally Sphenoid sinuses: Very small and completely opacified right sphenoid sinus. Dominant left sphenoid sinus with circumferential mild mucosal thickening and complete opacification of the ostium and infundibulum. Possibly prior sphenoidotomy. Aeration of the sphenoid sinus extends to the level of dorsum sella. Maxillary sinuses: . Status post bilateral antrostomies. Moderatepolypoid mucosal thickening. Patent ostiomeatal units. Nasal cavity: Bilateral uncinectomies and left sided partial middle turbinectomy. Nearly midline nasal septum. No septal spur. Fovea ethmoidalis at nearly the same level bilaterally. Intact cribriformplate. Tympanomastoid cavities: Well pneumatized and completely aerated Orbits: No significant finding. Brain: No significant finding. Soft tissues: No significant finding. 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 IMPRESSION: 1.Postsurgical changes of prior sinonasal surgery. 2.Inflammatory changes in multiple paranasal sinuses as above with underlying chronic sinusitis. Dictated by Josh Gore MD (Bridal Sales Consultant) Dr. MALENA Polanco M.D. have personally reviewed and interpreted this examination/study. This report was electronically signed by MALENA NOONAN M.D. on 01/16/2022 12:45 PM . Jaziel Rodriguez MD CT ORDERABLES * SPIROMETRY - POCT (AMB) [facility] (04/28/2018) MISCELLANEOUS SAMPLE S / Unknown 04/28/2018 Tristin Hawley DO LAB - POINT OF CARE ORDERABLES * XR CHEST 2VW (03/19/2017 10:43 AM CDT) Anatomical Region Laterality Modality Chest Other Impressions 03/19/2017 4:24 PM CDT Impression: No active pulmonary disease. Report dictated by Cong Comer MD (resident). Dr. CHITO Polanco MD have personally reviewed and interpreted this examination/study. This report was electronically signed by CHITO THORNE MD on 03/19/2017 4:24 PM . Narrative 03/19/2017 4:24 PM CDT Exam: XR CHEST PA AND LATERAL Exam Date: 03/19/2017 10:43 AM History: increased chest tightness, cough, h/o asthma Comparison: No prior study is available for comparison. Findings: There is no consolidation, pleural effusion or pneumothorax. The cardiac and mediastinal silhouettes are normal. Degenerative changes are seen in the midthoracic spine. Procedure Note Chito Thorne MD - 11/13/2017 Exam: XR CHEST PA AND LATERAL Exam Date: 03/19/2017 10:43 AM History: increased chest tightness, cough, h/o asthma Comparison: No prior study is available for comparison. Findings: There is no consolidation, pleural effusion or pneumothorax. The cardiacand mediastinal silhouettes are normal. Degenerative changes are seen inthe midthoracic spine. IMPRESSION Impression: No active pulmonary disease. Report dictated by Cong Comer MD (resident). Dr. CHITO Polanco MD have personally reviewed and interpreted thisexamination/study. This report was electronically signed by CHITO THORNE MD on 03/19/20174:24 PM . Timmy Alejandra MD DIAGNOSTIC IMAGING [facility] * PATHOLOGY/GENETICS HISTORICAL-ONBASE (08/19/2007) 08/19/2007 Historical Provider LAB - CHEMISTRY [facility] Performing Organization Address City/State/[facility] Co de Phone Number [facility] [address] Care Teams House Cleaner Relationship Specialty Start Date End Date Symone Hutton MD PCP - General 06/30/08
--- OUTSIDE RECORDS SUMMARY | 2024-09-27 10:28 | XMS_ITS | Referral Summary ---
Author Organization [facility] Address [address] [place] [address] Care Team Providers Care Leather Goods Assembler Name Role Phone Symone Hutton MD Primary Care Provider [phone] Source Comments [facility],non-owned Affiliates and Associated Physician Practices is amultiple site organization consisting of ambulatory clinics and hospital sitesin [place], [place], [place] and [place]. This disclosure is being madepursuant to the Care Everywhere program and may not contain all information available regarding this patient. Last updated 18.[facility] Encounters Date Type Department Care Team Description 07/19/2024 Travel 07/19/2024 8:00 AM AIRFIELD ENGINEER OFFICER - 07/19/2024 11:[address] [facility] Hospital Encounter [facility] PFT [address] [place] [address] Timmy Alejandra MD Discharge Disposition: Home or Self Care from Last 3 Months Allergies No known active allergies Medications * Be aware that medications may not be up to date on this document. Alwaysverify current medications with the patient. Medication Sig Dispensed Refills Start Date End Date Status losartan - hydroCHLOROthiazide (HYZAAR) 50-12.5 MG tablet Take 0.5 (one-half) tablet by mouth once daily 7 Active budesonide (PULMICORT) 0.5 MG/2ML nebulizer suspension Mix contents of 1 vial in 240ml saline. Irrigate half in each nostril twice daily. Pt to mix own saline bottle 120 mL 3 2 Active Additional Information Patient not taking.Reported on 12/22/2022 amLODIPine (Norvasc) 5 MG tablet Take 2 (two) tablets by mouth once daily 3 Active amLODIPine (Norvasc) 10 MG tablet Take 1 (one) tablet by mouth once daily 3 Active famotidine (Pepcid) 20 MG tabletIndications:Gastro esophageal reflux disease, unspecified whether esophagitis present Take 1 (one) tablet by mouth 2 times daily 180 tablet 3 4 Active budesonide-formoterol (Breyna) 160-4.5 MCG/ACT inhaler Inhale 2 (two) puffs by mouth 2 times daily 30.6 g 3 4 Active montelukast (Singulair) 10 MG tabletIndications:Severe asthma without complication, unspecified whether persistent (HCC) Take 1 (one) tablet by mouth once daily 90 tablet 3 4 Active fluticasone propionate (Flonase) 50 MCG/ACT nasal sprayIndications:Non-all ergic rhinitis [place] 1 (one) spray into each nostril 2 times daily 48 g 11 4 Active albuterol HFA (Proventil; Ventolin; Proair) 108 (90 Base) MCG/ACT inhalerIndications:Sever e persistent asthma without complication (HCC) Inhale 2 (two) puffs by mouth every 4 hours as needed for Shortness of Breath, Wheezing or Cough 8.5 g 11 4 Active azelastine (Astelin) 0.1 % nasal spray [place] 2 (two) sprays into each nostril 2 times daily 90 mL 3 4 Active Active Problems Problem Noted Date Diagnosed Date Moderate persistent asthma without complication 02/12/2023 Vocal cord dysfunction 05/02/2018 Essential hypertension 04/28/2018 Severe persistent asthma without complication GERD (gastroesophageal reflux disease) 3 Overview (11/16/2017): Well-controlled Non-allergic rhinitis 08/27/2012 Resolved Problems Problem Noted Date Diagnosed Date Resolved Date Acute upper respiratory infection 07/23/2017 11/30/2017 Headache 05/31/2015 04/21/2018 Chronic rhinitis 08/27/2012 04/21/2018 Chronic maxillary sinusitis 12/25/2010 04/21/2018 Immunizations Name Administration Dates Next Due INFLUENZA VACCINE 06/23/2022 INFLUENZA VACCINE, QUADR. (A FLURIA, FLUZONE QUADRIVALENT; 6MO+) (IIV4) 06/18/2017,08/06/2016,06/04/2015 INFLUENZA VACCINE, QUADR. (F LUZONE; FLULAVAL; FLUARIX; AFLURIA QUADRIVALENT; 6MO+), 0.5 ML (IIV4) 04/30/2020,05/29/2019,04/28/2018 PNEUMOCOCCAL PPV VACCINE 2018,05/25/2015,0 12/25/2010 Pneumococcal Pcv13 Conj 02/20/2016 TDAP, HISTORIC VACCINE 06/18/2017,06/13/2008 Zoster Hzv Vacc Recombinant Inj Im 06/25/2020, Social History Tobacco Use Types Packs/Day Years [...] Mass Index 28.62 05/19/2024 3:47 PM CDT Plan of Treatment Upcoming Encounters Date Type Department Care Team (Late st Contact Info) Description 11/17/2024 4:00 PM CDT Office Visit [facility] - [facility] [address] [place] [address], [place] [phone] Timmy Alejandra MD [address] [place] [address] DIV OF [place]ERGY/[place] [address] 12/08/2024 9:30 AM CDT Office Visit [facility] - ENT [address], [place] [phone] Jaziel Rodriguez MD [address] [place] [address] Procedures Procedure Name Priority Date/Time Associated Diagnosis Comments PFT-LAB Routine 07/19/2024 10:13 AM AIRFIELD ENGINEER OFFICER Severe persistent asthma without complication (HCC) from Last 3 Months Results * Complete PFT [facility] PFT Lab (07/19/2024 10:13 AM AIRFIELD ENGINEER OFFICER) Impressions Virgilio Mojica MD - 07/19/2024 10:13 AM AIRFIELD ENGINEER OFFICER [facility] DEPARTMENT OF PULMONARY, CRITICAL CARE, AND SLEEP [...] Fagan DO Pulmonary & Critical Care Fellow [facility] Pager: [phone] 7:56 PM I have reviewed the above study and agree with the interpretation as listed above. Virgilio Mojica MD Loan Interviewer of Pulmonary & Critical Care Medicine [facility] Pager [phone] Narrative Virgilio Mojica MD - 07/19/2024 10:13 AM AIRFIELD ENGINEER OFFICER Simon Fagan DO 07/19/2024 7:56 PM Timmy Alejandra MD RESPIRATORY THERAPY ORDERABLES from Last 3 Months Care Teams Leather Goods Assembler Relationship Specialty Start Date End Date Symone Hutton MD PCP - General 06/30/08
--- OUTSIDE RECORDS SUMMARY | 2024-09-27 10:28 | XMS_ITS | Clinical Summary ---
Author Organization [facility] [employer] Address [address] [place] [address] Care Team Providers Care Commercial Airplane Pilot Name Role Phone Symone Hutton MD Primary Care Provider [phone] Source Comments [facility] [employer],non-owned Affiliates and Associated Physician Practices is amultiple site organization consisting of ambulatory clinics and hospital sitesin [place], [place], [place] and [place]. This disclosure is being madepursuant to the Care Everywhere program and may not contain all information available regarding this patient. Last updated 18.[facility] [employer] Allergies No known active allergies Medications * [...] (Flonase) 50 MCG/ACT nasal sprayIndications:Non-all ergic rhinitis [place] 1 (one) spray into each nostril 2 times daily 48 g 11 4 Active albuterol HFA (Proventil; Ventolin; Proair) 108 (90 Base) MCG/ACT inhalerIndications:Sever e persistent asthma without complication (HCC) Inhale 2 (two) puffs by mouth every 4 hours as needed for Shortness of Breath, Wheezing or Cough 8.5 g 11 4 Active azelastine (Astelin) 0.1 % nasal spray [place] 2 (two) sprays into each nostril 2 [...] 08/27/2012 04/21/2018 Chronic maxillary sinusitis 12/25/2010 04/21/2018 Encounters Date Type Department Care Team Description 07/19/2024 8:00 AM GROCERY TEAM MEMBER - 07/19/2024 11:59 PM [facility] Hospital Encounter [facility] PFT [address] [place] [address] Timmy Alejandra MD Discharge Disposition: Home or Self Care 07/19/2024 Travel from Last 3 Months Immunizations Name Administration Dates Next Due INFLUENZA VACCINE 06/23/2022 INFLUENZA VACCINE, QUADR. (A FLURIA, FLUZONE QUADRIVALENT; 6MO+) (IIV4) 06/18/2017,08/06/2016,06/04/2015 INFLUENZA VACCINE, QUADR. (F LUZONE; FLULAVAL; FLUARIX; AFLURIA QUADRIVALENT; 6MO+), 0.5 ML (IIV4) 04/30/2020,05/29/2019,04/28/2018 PNEUMOCOCCAL PPV VACCINE 2018,05/25/2015,0 12/25/2010 Pneumococcal Pcv13 Conj 02/20/2016 TDAP, HISTORIC VACCINE 06/18/2017,06/13/2008 Zoster Hzv Vacc Recombinant Inj Im 06/25/2020, Family History Medical History Relation Name Comments High Cholesterol Brother Hypertension Brother Diabetes Father Arthritis - Rheumatoid Mother Relation Name Status Comments Brother Father Mother Social History Tobacco Use Types Packs/Day Years [...] Office Visit [facility] - Allergy [address] [place] [address], [facility] [place] [phone] Timmy Alejandra MD [address] [place] [address] DIV OF ALLERGY/[place] [address] 12/08/2024 9:30 AM CDT Office Visit [facility] - ENT [address] [place] [address], [place] [phone] Jaziel Rodriguez MD [address] [place] [address] [address] [place] [address] Health Maintenance Due Date Last Done Comments COLOGUARD (AGES 45-75) - COLON CA SCREENING 1959 COLON MONITORING 1959 COLONOSCOPY - COLON CA SCREENING 1959 CT COLONOGRAPHY - COLON CA SCREENING 1959 Colorectal Cancer Screening 1959 FIT - COLON CA SCREENING 1959 FLEX SIG - COLON CA SCREENING 1959 LIPID TESTING 1959 HIV SCREENING 1974 HEPATITIS C SCREENING 09/17/1977 Respiratory Syncytial Virus (RSV) Vaccine Pt: or over 60 yrs (1 - Risk 60-74 years 1-dose series) 2019 SCREENING FOR DIABETES 12/12/2021 PNEUMOCOCCAL VACCINE 50+ (3 of 3 - PCV20 or PCV21) 2023 2018, 02/20/2016, 05/25/2015, Additional history exists PNEUMOCOCCAL VACCINE (3 of 3 - PCV20 or PCV21) 2023 2018, 02/20/2016, 05/25/2015, Additional history exists COVID-19 VACCINE ( - season) 2024 07/17/2022, 06/28/2021, 11/24/2020, Additional history exists INFLUENZA VACCINE (#1) 2024 2, 04/30/2020, 05/29/2019, Additional history exists DEPRESSION SCREENING 08/17/2024 02/12/2023 DTAP/TDAP/TD VACCINES (3 - Td or Tdap) 06/18/2027 06/18/2017, 06/13/2008 ZOSTER VACCINE Completed 06/25/2020, 03/06/2020 HEPATITIS B VACCINE Aged Out No longe r eligible based on patient's age to complete this topic HIB VACCINE Aged Out No longer eligi ble based on patient's age to complete this topic HPV VACCINE Aged Out No longer eligi ble based on patient's age to complete this topic MENINGOCOCCAL (Group B) VACCINE Aged Out No longer eligible based on patient's age to complete this topic MENINGOCOCCAL VACCINE Aged Out No jose driss eligible based on patient's age to complete this topic Procedures Procedure Name Priority Date/Time Associated Diagnosis Comments PFT-LAB Routine 07/19/2024 10:13 AM GROCERY TEAM MEMBER Severe persistent asthma without complication (HCC) from Last 3 Months Results * Complete PFT [facility] PFT Lab (07/19/2024 10:13 AM GROCERY TEAM MEMBER) Impressions Virgilio Mojica MD - 07/19/2024 10:13 AM GROCERY TEAM MEMBER [facility] DEPARTMENT OF PULMONARY, CRITICAL CARE, AND [...] Fagan DO Pulmonary & Critical Care Fellow [facility] Pager: [phone] 7:56 PM I have reviewed the above study and agree with the interpretation as listed above. Virgilio Mojica MD Hydroelectric Plant Electrician of Pulmonary & Critical Care Medicine [facility] Pager [phone] Narrative Virgilio Mojica MD - 07/19/2024 10:13 AM GROCERY TEAM MEMBER Simon Fagan DO 07/19/2024 7:56 PM Timmy Alejandra MD RESPIRATORY THERAPY ORDERABLES from Last 3 Months Care Teams Commercial Airplane Pilot Relationship Specialty Start Date End Date Symone Hutton MD PCP - General 06/30/08
[2024-09-27 10:44] LABS: SARS-CoV-2 RNA PCR Negative (Negative)
[2024-09-27 10:49] LABS: Influenza A QL RT-PCR Negative (Negative); Influenza B QL RT-PCR Negative (Negative); RSV RNA, RT-PCR Negative (Negative); Strep Group A RT-PCR NOT DETECTED (Negative)
== END 2024-09-27 09:34 | disposition home or self-care (01) ==
LOC: CHSLAB 09:37
PROVIDERS: PCP Internal Medicine; Visit Provider Internal Medicine
DX: J06.9 Acute upper respiratory infection, unspecified (principal)
CPT/HCPCS: 36415; 71046; 80048; 85027; 87637; 87651

== ENCOUNTER 2025-08-11 14:27 | Outpatient (CLI) | payer MEDICARE, SELFPAY ==
--- NOTE | ~2025-08-11 | XR_ITS ---
EXAMINATION: XR hip LT min 2V DATE: 08/11/2025 15:37 INDICATION: Left hip pain TECHNIQUE: Anteroposterior and frog-leg lateral views of the left hip were obtained. COMPARISON: None. FINDINGS: Bone alignment is normal. No fracture or suspected osteonecrosis. Tiny os acetabula on the posterior superior rim of the left acetabulum. Left hip joint space appears relatively preserved the frontal projection. Phlebolith in the left hemipelvis. Soft tissues are unremarkable. IMPRESSION: 1. Tiny left os acetabulum. Otherwise unremarkable left hip radiographs. Reviewed, dictated and finalized at location A. ET COATER
--- NOTE | ~2025-08-11 | CT_ITS ---
EXAMINATION: CT abdomen pelvis w con DATE: 08/11/2025 15:37 INDICATION: Left lower quadrant abdominal pain TECHNIQUE: Computed tomography (CT) of the abdomen and pelvis was performed with 100 mL Omnipaque-350 intravenous contrast. Automated exposure control and iterative reconstruction technique were employed. The dose-length product was 503.24 mGy-cm. COMPARISON: None FINDINGS: Lung bases are clear. Heart size is normal. No pericardial or pleural effusion. Small sliding-type hiatal hernia. A couple cysts in the right hepatic lobe the largest measuring 1.3 cm. Gallbladder, spleen, pancreas and bilateral adrenal glands are normal. Normal anatomic variant horseshoe kidney with fusion of the lower pulled extending across the midline. There are bilateral renal cysts the largest at the right upper pole moiety measuring 8 cm. There are also few small peripelvic cysts at the left upper pole moiety. No hydronephrosis. Bladder is normal. Bowels including the appendix are normal. Bladder is normal. No free intraperitoneal gas or fluid. No pathologically enlarged abdominal or pelvic lymphadenopathy. Mild S-shaped curvature of the lumbar spine with severe spondylosis. 3 mm retrolisthesis L2 on L3 which along with a prominent posterior osteophyte at the L2 inferior endplate contributes to moderate central canal stenosis at this level. Mild bilateral hip osteoarthritis with mild posterior predominant nonuniform joint space narrowing. IMPRESSION: 1. No acute intra-abdominal/pelvic process. 2. Developmental variant horseshoe kidney. Reviewed, dictated and finalized at location A. NG INSTALLER
--- OUTSIDE RECORDS SUMMARY | 2025-08-11 14:30 | XMS_ITS | Clinical Summary ---
Author Organization [facility] [employer] Address [address] [place] [address] Care Team Providers Care Servomechanism Assembler Name Role Phone Symone Hutton MD Primary Care Provider [phone] Source Comments [facility] [employer],non-owned Affiliates and Associated Physician Practices is amultiple site organization consisting of ambulatory clinics and hospital sitesin [place], [place], [place] and [place]. This disclosure is being madepursuant to the Care Everywhere program and may not contain all information available regarding this patient. Last updated 18.[facility] [employer] Allergies No known active allergies Medications * Be aware that medications may not be up to date on this document. Alwaysverify current medications with the patient. losartan - hydroCHLOROthiazide (HYZAAR) 50-12.5 MG tablet Take 0.5 (one-half) tablet by mouth once daily 017 Active amLODIPine (Norvasc) 5 MG tablet Take 2 (two) tablets by mouth once daily 023 Active amLODIPine (Norvasc) 10 MG tablet Take 1 (one) tablet by mouth once daily 023 Active albuterol HFA (Proventil; Ventolin; Proair) 108 (90 Base) MCG/ACT inhalerIndications:Sev ere persistent asthma without complication (HCC) Inhale 2 (two) puffs by mouth every 4 hours as needed for Shortness of Breath, Wheezing or Cough 8.5 g 11 024 Active azelastine (Astelin) 0.1 % nasal spray [place] 2 (two) sprays into each nostril 2 times daily 90 mL 3 025 Active fluticasone propionate (Flonase) 50 MCG/ACT nasal sprayIndications:Non-a llergic rhinitis [place] 1 (one) spray into each nostril 2 times daily 48 g 11 025 Active montelukast (Singulair) 10 MG tabletIndications:Mehnaz re asthma without complication, unspecified whether persistent (HCC) Take 1 (one) tablet by mouth once daily 90 tablet 4 025 Active fluticasone-vilanterol (Breo Ellipta) 200-25 MCG/ACT inhaler Inhale 1 (one) puff by mouth once daily 28 Each 5 025 Active famotidine (Pepcid) 20 MG tabletIndications:Cabrera roesophageal reflux disease, unspecified whether esophagitis present TAKE 1 TABLET BY MOUTH TWICE DAILY 180 tablet 3 025 Active famotidine (Pepcid) 20 MG tabletIndications:Cabrera roesophageal reflux disease, unspecified whether esophagitis present Take 1 (one) tablet by mouth 2 times daily 180 tablet 3 025 2024 Discontinued Active Problems Problem Noted Date Diagnosed Date White coat syndrome without diagnosis of hyperte nsion 05/25/2025 Moderate persistent asthma without complication 02/12/2023 Vocal cord dysfunction 05/02/2018 Essential hypertension 04/28/2018 Severe persistent asthma without complication GERD (gastroesophageal reflux disease) 3 Overview (11/16/2017): Well-controlled Non-allergic rhinitis 08/27/2012 Resolved Problems Problem Noted Date Diagnosed Date Resolved Date Acute upper respiratory infection 07/23/2017 11/30/2017 Headache 05/31/2015 04/21/2018 Chronic rhinitis 08/27/2012 04/21/2018 Chronic maxillary sinusitis 12/25/2010 04/21/2018 Encounters Date Type Department Care Team Description 08/08/2025 Refill [facility] [address] [place] [address] [place] [address] Timmy Alejandra MD Refill Request 07/06/2025 Refill [facility] - Infectious Disease [address] [place] [phone] Timmy Alejandra MD MEDICATION REFILL 06/04/2025 Orders Only [facility] - Allergy [address] [place] [phone] Burak Velasquez MD 05/26/2025 10:30 AM CDT Office Visit [facility] - [facility]ergy [address] [place] [phone] Timmy Alejandra MD Non-allergic rhinitis (Primary Dx); Gastroesophageal reflux disease without esophagitis; Severe persistent asthma without complication (HCC); Vocal cord dysfunction; White coat syndrome without diagnosis of hypertension 05/26/2025 Travel from Last 3 Months Immunizations Immunization Administration Dates Next Due INFLUENZA VACCINE 06/23/2022 [...] pur e alcohol) PHQ-2 Answer Date Recorded Patient Health Questionnaire-2 Score 0 11/17/2024 Sex and Gender Information Value Date Recorded Sex Assigned at Not on file Legal Sex Male 5:14 PM SALES 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 Gender Identity Not on file Sexual Orientation Not on file Last Filed Vital Signs Vital Sign Reading Time Taken Comments Blood Pressure 176/90 05/26/2025 10:46 AM CDT Pulse 58 05/26/2025 10:46 AM CDT Temperature 36.2 C (97.1 F) 05/26/2025 10:46 AM CDT Respiratory Rate 18 05/26/2025 10:46 AM CDT Oxygen Saturation 97% 05/26/2025 10:46 AM CDT Inhaled Oxygen Concentration - - Weight 93 kg (205 lb) 05/26/2025 10:46 AM CDT Height 182.9 cm (6') 05/26/2025 10:46 AM CDT Body Mass Index 27.8 05/26/2025 10:46 AM CDT Plan of Treatment Upcoming Encounters Date Type Department Care Team (Late st Contact Info) Description 11/24/2025 11:30 AM CDT Office Visit [facility] - [facility]ergy [address] [place] [address], [place] [address] Timmy Alejandra MD [address] [place] [address] OF ALLERGY/[place] [address] Health Maintenance Due Date Last Done Comments [...] or over 60 yrs (1 - Risk 50-74 years 1-dose series) 2009 SCREENING FOR DIABETES 12/12/2021 PNEUMOCOCCAL VACCINE 50+ (3 of 3 - PCV20 or PCV21) 2023 2018, 02/20/2016, 05/25/2015, Additional history exists MEDICARE AWV CALENDAR YEAR 2024 COVID-19 VACCINE ( season) 2025 07/17/2022, 06/28/2021, 11/24/2020, Additional history exists INFLUENZA VACCINE (#1) 2025 2, 04/30/2020, 05/29/2019, Additional history exists DTAP/TDAP/TD VACCINES (3 - Td or Tdap) 06/18/2027 06/18/2017, 06/13/2008 ZOSTER VACCINE Completed 06/25/2020, 03/06/2020 DEPRESSION SCREENING Completed 11/17/2024, 02/13/20 23 HEPATITIS B VACCINE Aged Out No longe r eligible based on patient's age to complete this topic HIB VACCINE Aged Out No longer eligi ble based on patient's age to complete this topic HPV VACCINE Aged Out No longer eligi ble based on patient's age to complete this topic MENINGOCOCCAL (Group B) VACCINE SHARED DECISION-MAKING Aged Out No longer eligible based on patient's age to complete this topic MENINGOCOCCAL GROUPS A/C/Y/W VACCINE Aged Out No longer eligible based on patient's age to complete this topic Insurance [facility] MEDICARE ADV Care Teams Servomechanism Assembler Relationship Specialty Start Date End Date Symone Hutton MD [facility] - General 06/30/08
--- OUTSIDE RECORDS SUMMARY | 2025-08-11 14:30 | XMS_ITS | Encounter Summary ---
Author Organization [facility] Address [address] [place] [address] Care Team Providers Care Recreation Facility Attendant Name Role Phone Symone Hutton MD Primary Care Provider [phone] Reason for Visit * Reason Onset Date Comments MEDICATION REFILL 12/14/2024 Encounter Details Date Type Department Care Team (Late st Contact Info) Description 12/14/2024 Refill [facility] - Infectious Disease [address] [facility], [place] [address] Danae Patel DO [address] [facility] DIV [place] [phone] MEDICATION REFILL Social History Tobacco Use Types Packs/Day Years Used Date Smoking Tobacco: Never Smokeless Tobacco: Never Alcohol Use Standard Drinks/Week Comments Yes 4 (1 standard drink = 0.6 oz pur e alcohol) PHQ-2 Answer Date Recorded Patient Health Questionnaire-2 Score 0 11/17/2024 Sex and Gender Information Value Date Recorded Sex Assigned at Not on file Legal Sex Male 5:14 PM TEST ANALYST Gender Identity Not on file Sexual Orientation Not on file documented as of this encounter Plan of Treatment Upcoming Encounters Date Type Department Care Team (Late st Contact Info) Description 11/24/2025 11:30 AM CDT Office Visit [facility] - Allergy [address] [place], [place] [address], [place] [address] Timmy Alejandra MD [address] [place] [address] OF ALLERGY/[place] [address] documented as of this encounter Visit Diagnoses Diagnosis Severe asthma without complication, unspecified whether persistent (HCC) documented in this encounter Care Teams Recreation Facility Attendant Relationship Specialty Start Date End Date Symone Hutton MD PCP - General 06/30/08 documented as of this encounter
--- OUTSIDE RECORDS SUMMARY | 2025-08-11 14:30 | XMS_ITS | Clinical Summary ---
Author Organization [facility] Address [facility] [place] [address] Care Team Providers Care Gang Drill Operator Name Role Phone Unavailable Primary Care Provider [...] Comments Blood Pressure 152/80 06/25/2015 9:36 AM SUPERVISOR INSPECTION Pulse 56 06/25/2015 9:35 AM SUPERVISOR INSPECTION Temperature - - Respiratory Rate 16 06/25/2015 9:35 AM SUPERVISOR INSPECTION Oxygen Saturation - - Inhaled Oxygen Concentration - - Weight 92.7 kg (204 lb 6.4 oz) 06/25/2015 9:35 A M SUPERVISOR INSPECTION Height 181.6 cm (5' 11.5) 06/25/2015 9:35 AM CS T Body Mass Index 28.11 06/25/2015 9:35 AM SUPERVISOR INSPECTION Plan of Treatment Health Maintenance Due Date Last Done Comments Colorectal Cancer Screening Colonoscopy (10 Years) 1959 Hepatitis C 1977 DTaP, Tdap and Td Vaccines ( 1 - Tdap) 1978 Pneumococcal Vaccine: 50+ Ye ars (1 of 1 - PCV) 2009 Zoster Vaccines (1 of 2) 2009 COVID-19 Vaccine ( - 2024-2 6 season) 2025 Influenza Adult (#1) 2025 RSV Immunization or 60+ Years (1 - 1-dose 75+ series) 2034 Hepatitis A Vaccines Aged Out No long er eligible based on patient's age to complete this topic Meningococcal B Vaccine Aged Out No l onger eligible based on patient's age to complete this topic Meningococcal Vaccine Aged Out No jose driss eligible based on patient's age to complete this topic RSV Immunizations Under 20 Months Aged Out No longer eligible based on patient's age to complete this topic
[2025-08-11 15:18] LABS: Estimated Glomerular Filt Rate 57
== END 2025-08-11 14:28 | disposition home or self-care (01) ==
PROVIDERS: PCP Internal Medicine; Visit Provider Internal Medicine
DX: R10.32 Left lower quadrant pain (principal); M25.552 Pain in left hip; Q63.1 Lobulated, fused and horseshoe kidney
CPT/HCPCS: 73502; 74177; Q9967